=== PATIENT | female | born 1995 | race Caucasian/White ===

== ENCOUNTER 2021-01-14 14:30 | Inpatient (IN) | payer BC, MEDICAID, SELFPAY ==
[~2021-01-14] VITALS: Ht 170.2 cm; Wt 83.9 kg
[2021-01-14] MEDS ORDERED: PROMETHAZINE 25 MG/ML VIAL IVP PRN (14:55)
[2021-01-14] MEDS ORDERED: MORPHINE SULFATE 5 MG/ML VIAL IVP PRN (14:55)
--- NOTE | 2021-01-14 15:02 | NUR ---
PATIENT HAS BEEN SCREENED AND CATEGORIZED LOW NUTRITION RISK. PATIENT WILL BE SEEN WITHIN 7 DAYS OF ADMISSION. 01/21/21 FER EDUARDO MBA, RD
[2021-01-14] MEDS ORDERED: AMPICILLIN 2,000 MG in NACL 0.9% 100 ML IV SCH (15:10)
[2021-01-14] MEDS ORDERED: AMPICILLIN 2,000 MG VIAL ONE (15:14)
[2021-01-14 15:24] LABS: APPEARANCE,URINE SL CLOUDY (CLEAR); BASOPHILS % (AUTO) 0.2 % (0.0-2.0); BILIRUBIN,URINE NEGATIVE (NEGATIVE); BLOOD, URINE 3+ (NEGATIVE); COLOR,URINE YELLOW (YELLOW); EOSINOPHILS % (AUTO) 0.2 % (0.0-4.0); HEMATOCRIT 34.9 % (36-48); HEMOGLOBIN 11.4 g/dL (12.0-16.0); LEUKOCYTE ESTERASE ,URINE 1+ (NEGATIVE); LYMPHOCYTES # (AUTO) 1.8 K/uL (2.5-16.5); LYMPHOCYTES % (AUTO) 13.9 % (20.5-51.1); MEAN CORPUSCULAR HEMOGLOBIN 27 pg (27-31); MEAN CORPUSCULAR HGB CONC 33 g/dL (33-37); MEAN CORPUSCULAR VOLUME 83.6 fL (80-94); MONOCYTES # (AUTO) 0.7 K/uL (0.8-1.0); MONOCYTES % (AUTO) 5.3 % (1.7-9.3); NEUTROPHILS # (AUTO) 10.4 K/uL (1.8-7.7); NEUTROPHILS % (AUTO) 80.4 % (42.2-75.2); NITRITE, URINE NEGATIVE (NEGATIVE); PLATELET COUNT (AUTO) 158 K/uL (140-450); RED BLOOD CELL COUNT(AUTO) 4.17 MIL/uL (4.20-5.40); RED CELL DISTRIBUTION WIDTH 13.9 % (11.6-13.7); UGLUCOSE NEGATIVE (NEGATIVE); WHITE BLOOD COUNT (AUTO) 12.9 K/uL (4.8-10.8)
[2021-01-14] MEDS ORDERED: MORPHINE SULFATE 10 MG/ML VIAL IVP PRN (15:30)
[2021-01-14 15:38] LABS: ALBUMIN 2.9 g/dL (3.4-5.0); ANION GAP 13.5 (8-16); CARBON DIOXIDE 23.3 mmol/L (21-32); CREATININE 0.7 mg/dL (0.6-1.3); POTASSIUM 3.8 mmol/L (3.5-5.1); TOTAL BILIRUBIN 0.4 mg/dL (0.0-1.0)
[2021-01-14] MEDS: LACTATED RINGERS 1,000 ML IV SCH ×2 (15:39→18:39)
[2021-01-14] MEDS ORDERED: [UNRECOGNIZED DRUG - CODE] PO (15:45)
[2021-01-14 16:08] LABS: RBC,URINE 11-20 (MOD) /HPF (0-5)
[2021-01-14] MEDS ORDERED: ROPIVACAINE 0.2%/NS PREMIX 200 ML EPI ONE (16:10)
[2021-01-14 17:37] VITALS: BP 135/82
[2021-01-14] MEDS ORDERED: OXYTOCIN 20 UNITS/LR PREMIX 1,000 ML IV ONE (17:52)
[2021-01-14] MEDS: OXYTOCIN 20 UNITS in LACTATED RINGERS 1,000 ML IV SCH (18:12)
[2021-01-14] MEDS ORDERED: AMPICILLIN 1,000 MG in NACL 0.9% 50 ML IV SCH (19:00)
[2021-01-14] MEDS ORDERED: AMPICILLIN 1,000 MG VIAL ONE (20:07)
[2021-01-15] MEDS: LACTATED RINGERS 1,000 ML IV SCH (02:41)
[2021-01-15] MEDS ORDERED: METHYLERGONOVINE 0.2 MG/ML AMP IM PRN (09:15)
[2021-01-15] MEDS ORDERED: BENZOCAINE/MENTHOL 20%-0.5% 60 GM CAN TP PRN (09:15)
[2021-01-15] MEDS ORDERED: oxyCODONE/APAP 5/325 MG 1 TAB TAB PO PRN (09:15)
[2021-01-15] MEDS ORDERED: OXYTOCIN 10 UNITS/ML VIAL IM PRN (09:15)
[2021-01-15] MEDS ORDERED: METHYLERGONOVINE 0.2 MG TAB PO PRN (09:15)
[2021-01-15] MEDS ORDERED: TEMAZEPAM 15 MG CAP PO PRN (09:15)
[2021-01-15] MEDS ORDERED: MEASLES, MUMPS, AND RUBELLA 1 VIAL SQVAC PRN (09:15)
[2021-01-15] MEDS ORDERED: OXYTOCIN 20 UNITS/LR PREMIX 1,000 ML IV ONE (09:27)
[2021-01-15] MEDS: OXYTOCIN 20 UNITS in LACTATED RINGERS 1,000 ML IV SCH (09:31)
[2021-01-15] MEDS ORDERED: AMMONIA AROMATIC 1 INHL INH ONE (11:37)
[2021-01-15] MEDS: IBUPROFEN 800 MG TAB PO PRN ×2 (12:10→20:01)
[2021-01-15] MEDS: oxyCODONE/APAP 5/325 MG 1 TAB TAB PO PRN (15:33)
[2021-01-15] MEDS ORDERED: DOCUSATE SOD/SENNA 50/8.6 MG 1 TAB PO SCH (21:00)
[2021-01-15] MEDS: bisacodyL 5 MG TABEC PO SCH (21:43)
[2021-01-16 05:04] LABS: HEMATOCRIT 27.8 % (36-48); HEMOGLOBIN 9.3 g/dL (12.0-16.0)
[2021-01-16] MEDS: oxyCODONE/APAP 5/325 MG 1 TAB TAB PO PRN (14:03)
[2021-01-16] MEDS: bisacodyL 5 MG TABEC PO SCH (20:11)
[2021-01-16] MEDS: IBUPROFEN 800 MG TAB PO PRN (21:07)
[2021-01-17] MEDS: IBUPROFEN 800 MG TAB PO PRN (04:17)
[2021-01-17] MEDS ORDERED: FERR325E14 PO (09:39)
[2021-01-17] MEDS ORDERED: IBUP-2213 PO (09:40)
== END 2021-01-17 12:15 | disposition home or self-care (01) | DRG 807 ==
LOC: MFCC 14:30
PROVIDERS: ADMIT Obstetrics & Gynecology; ATTEND Obstetrics & Gynecology
PROC: 3E033VJ Introduction of Other Hormone into Peripheral Vein, Percutaneous Approach (ICD-10-PCS; 2021-01-14)
PROC: 10E0XZZ Delivery of Products of Conception, External Approach (ICD-10-PCS; principal; 2021-01-15)
PROC: 0W8NXZZ Division of Female Perineum, External Approach (ICD-10-PCS; 2021-01-15)
PROC: 3E0R3BZ Introduction of Anesthetic Agent into Spinal Canal, Percutaneous Approach (ICD-10-PCS; 2021-01-15)
PROC: 00HU33Z Insertion of Infusion Device into Spinal Canal, Percutaneous Approach (ICD-10-PCS; 2021-01-15)
PROC: 3E0234Z Introduction of Serum, Toxoid and Vaccine into Muscle, Percutaneous Approach (ICD-10-PCS; 2021-01-16)
DX: O80 Encounter for full-term uncomplicated delivery (principal); Z37.0 Single live birth; Z23 Encounter for immunization; Z20.822 Contact with and (suspected) exposure to COVID-19; Z3A.37 37 weeks gestation of pregnancy
CPT/HCPCS: 36415; 51702; 80053; 81001; 85018; 85025; 86592; 86886; 86900; 86901; 87086; 87653-90; 90715; J0290; J2590; J2795; J7120